=== PATIENT | female | born 1995 | race Caucasian/White ===

== ENCOUNTER 2019-12-16 13:54 | Emergency (ER) | payer SELFPAY ==
--- NOTE | 2019-12-16 14:36 | ECG_ITS ---
Measurements Intervals Duck Rate: 84 P: 71 NC: 138 QRS: 84 QRSD: 90 T: 50 QT: 357 QTc: 422 Interpretive Statements SINUS RHYTHM WITH SINUS ARRHYTHMIA DELAYED PRECORDIAL R/S TRANSITION BORDERLINE ECG Electronically Signed On 12-16-2019 14:48:08 [facility] by Alcides Solis D.O.
[2019-12-16 14:37] VITALS: BP 130/75; PULSE 87; RESP 19; TEMP 37.1; O2SAT 100
[2019-12-16 14:56] LABS: Basophils Absolute Auto 0.1 K/mm3 (0.0-0.1); Basophils Percent Auto 0.5 % (0.2-1.2); Eosinophils Absolute Auto 0.1 K/mm3 (0-0.3); Eosinophils Percent Auto 0.5 % (0-4.4); Hematocrit 40.2 % (37.0-47.0); Hemoglobin 13.5 g/dL (12.0-15.0); Immature Granulocyte Absolute 0.04 K/mm3 (0.00-0.031); Immature Granulocyte Percent A 0.4 % (0-0.5); Lymphocytes Absolute Auto 1.97 K/mm3 (0.9-3.2); Lymphocytes Percent Auto 19.9 % (18.3-44.2); Mean Corpuscular HGB Conc 33.6 g/dl (32-36); Mean Corpuscular Hemoglobin 29.7 pg (26-34); Mean Corpuscular Volume 88.5 fl (80-100); Mean Platelet Volume 10.8 fl (7.4-10.4); Monocytes Percent Auto 10.5 % (2.6-8.5); Neutrophils Absolute Auto 6.8 K/mm3 (1.3-6.7); Neutrophils Percent Auto 68.2 % (45.5-73.1); Platelet Count Result 300 k/mm3 (150-375); Red Blood Count 4.54 M/mm3 (4.2-5.4); Red Cell Distribution Width 12.5 % (11.5-14.5); White Blood Count 9.9 K/mm3 (4.5-10.0)
[2019-12-16 15:07] LABS: Alanine Aminotransferase 11 U/L (4-35); Albumin Level 4.6 g/dL (3.5-5.1); Alkaline Phosphatase 48 U/L (38-126); Aspartate Amino Transferase 20 U/L (14-36); Bilirubin,Total 0.4 mg/dL (0.2-1.3); Blood Urea Nitrogen 9 mg/dL (7-17); Calcium 9.6 mg/dL (8.4-10.2); Carbon Dioxide 25 mmol/L (22-30); Chloride 104 mmol/L (98-107); Estimated Glomerular Filt Rate > 60; Glucose 91 mg/dL (65-105); Sodium 139 mmol/L (137-145)
[2019-12-16 16:21] VITALS: BP 100/68; PULSE 77; RESP 16; O2SAT 98
[2019-12-16 16:36] LABS: Add Urine Microscopic? YES; Appearance Urine Clear (Clear); Bacteria Urine Trace /hpf; Bilirubin Urine Negative (Negative); Blood Urine Negative (Negative); Color Urine Straw (Yellow); Glucose Urine UA Negative (Negative); Ketones Urine Negative (Negative); Leukocyte Esterase Ur 1+ LEU/UL (Negative); Mucus Urine Rare /lpf; Nitrate Urine Negative (Negative); Protein Urine Negative (Negative); RBC Urine 0-2 /hpf (0-2); Specific Grav Ur 1.012 (1.001-1.035); Squamous Epithelial Cell Urine Occasional /hpf (Few); Urobilinogen Urine Negative mg/dL (<2.0); WBC Urine 21-30 /hpf
--- NOTE | 2019-12-16 17:03 | ED.DIZZY ---
HPI - Dizziness General Chief Complaint: Dizziness <Deb Hurtado PA-C - Last Filed: 12/16/19 17:48> Stated Complaint: Dizzy,lightheaded <CALEB Theodore Last Filed: 12/16/19 17:48> Time Seen by Provider: 12/16/19 15:59 <Deb Hurtado PA-C - Last Filed: 12/16/19 17:48> Source: patient <CALEB Theodore Last Filed: 12/16/19 17:48> Mode of arrival: ambulatory <CALEB Theodroe Last Filed: 12/16/19 17:48> Limitations: no limitations <CALEB Theodore Last Filed: 12/16/19 17:48> History of Present Illness HPI Narrative: Patient presents with chief complaint of having a 30-minute episode after standing where she was dizzy, felt tingling in bilateral fingertips and felt pain. Patient states that she thinks it may be anxiety related to that she and her family have a history of anxiety. sHe denies nausea, vomiting, headache, change in vision or hearing, abdominal pain, head trauma, syncope, chest pain, shortness of breath. Patient states she is set for awhile, then came to the ER and her symptoms resolved by the time that she got here. Patient states that her symptoms have not returned. Patient states that she has had some dysuria since ending her menstrual cycle 1 week ago. She denies fever, chills, flank pain, hematuria. <CALEB Theodore Last Filed: 12/16/19 17:48> Related Data Allergies/Adverse Reactions: Allergies Allergy/AdvReac Type Severity Reaction Status Date / Time No Known Allergies Allergy Verified 12/16/19 17:35 <Deb Hurtado PA-C - Last Filed: 12/16/19 17:48> Review of Systems Review of Systems: Narrative: CONSTITUTIONAL: Denies fever, chills, or sweats. EYES: Denies visual changes, redness, or discharge. ENT: Denies rhinorrhea, congestion, sore throat, or otalgia. CARDIOVASCULAR: Denies chest pain, palpitations, or edema. RESPIRATORY: Denies cough or dyspnea. GASTROINTESTINAL: Denies abdominal pain, nausea, vomiting, or diarrhea. GENITOURINARY: Reports dysuria denies hematuria. SKIN:Denies rash or itching. MUSCULOSKELETAL: Denies back pain, joint pain, or myalgia. NEUROLOGIC: Reports dizziness denies headache, numbness, or weakness. PSYCHIATRIC: Denies anxiety or depression. <Deb Hurtado PA-C - Last Filed: 12/16/19 17:48> [facility] Social History Social History: Social History Gender identity (if verbalized by the patient): Female <Deb Hurtado PA-C - Last Filed: 12/16/19 17:48> Exam Narrative: Exam Narrative: GENERAL: Well-appearing, well-nourished, and in no acute distress. HEAD: Normocephalic, atraumatic. EYES: PERRLA and EOMI. ENT: Nares clear, no rhinorrhea or epistaxis. Mucous membranes moist. Oropharynx without tonsillar hypertrophy exudate or other lesions. Bilateral TMs pearly hinkle nonbulging NECK: Supple. No adenopathy or masses. No carotid bruits or JVD CHEST: Clear to auscultation. No respiratory distress. No wheezes rales or rhonchi HEART: Regular rate and rhythm. No murmur heard. Normal peripheral pulses. ABDOMEN: Soft, nontender, nondistended, normal active bowel sounds. EXTREMITIES: Normal range of motion. No edema. SKIN: Warm, dry, no rash. NEURO: No focal deficits. Alert and oriented x3. PSYCH: Normal mood and affect. <Deb Hurtado PA-C - Last Filed: 12/16/19 17:48> Course Vital Signs Vital signs: Vital Signs Temperature 37.1 C 12/16/19 14:37 Pulse Rate 87 12/16/19 14:37 Respiratory Rate 19 12/16/19 14:37 Blood Pressure 130/75 12/16/19 14:37 Pulse Oximetry 100 12/16/19 14:37 Temperature 37.1 C 12/16/19 14:37 Pulse Rate 82 12/16/19 17:56 Respiratory Rate 16 12/16/19 17:56 Blood Pressure 100/72 12/16/19 17:56 Pulse Oximetry 98 02/13/20 17:56 <Deb Hurtado PA-C - Last Filed: 12/16/19 17:48> Vital Signs Temperature 37.1 C 12/16/19 14:37 Pulse Rate 87 12/16/19 14:37 Respiratory Rate 19 12/16/19 14:37 Blood Pr
[2019-12-16 17:56] VITALS: BP 100/72; PULSE 82; RESP 16; O2SAT 98
== END 2019-12-16 17:58 | disposition home or self-care (01) ==
PROVIDERS: Emergency Medicine; Emergency Provider Emergency Medicine
DX: R42 Dizziness and giddiness (principal); N30.00 Acute cystitis without hematuria; R94.31 Abnormal electrocardiogram [ECG] [EKG]
CPT/HCPCS: 36415; 80053; 81001; 81025; 85025; 87086; 87088; 93005; 99283

== ENCOUNTER 2021-12-11 09:55 | Outpatient (CLI) | payer BC, SELFPAY ==
--- NOTE | ~2021-12-11 | US_ITS ---
EXAMINATION: US OB <= 14 weeks fetus DATE: 12/11/2021 10:18 INDICATION: Uncertain dates. TECHNIQUE: Real-time transabdominal pelvic ultrasound was performed. COMPARISON: None. FINDINGS: The uterus measures 10.9 x 8.0 x 5.9 cm. There is an intrauterine gestational sac. A yolk sac is iden tified. The crown rump length measures 2.8 cm, which correlates with an estimated gestational age of 9 weeks and 4 day(s) (+/-) 6 day(s). heart motion is identified measuring 165 beats per minute (bpm) by M-mode Doppler. The ovaries are not visualized. There is no free fluid in the pelvis. IMPRESSION: 1. Single living intrauterine gestation with estimated date of delivery of 07/12/2022. Reviewed, dictated and finalized at location A. [facility] IMPRESSION: 1. Single living intrauterine gestation with estimated date of delivery of 07/12.
== END 2021-12-11 09:56 | disposition home or self-care (01) ==
PROVIDERS: Visit Provider Obstetrics & Gynecology
DX: Z36.89 Encounter for other specified antenatal screening (principal)
CPT/HCPCS: 76801

== ENCOUNTER 2022-01-02 13:48 | Outpatient (CLI) | payer BC, SELFPAY ==
[2022-01-02 14:52] LABS: Basophils Absolute Auto 0.1 K/mm3 (0.0-0.1); Basophils Percent Auto 0.6 % (0.2-1.2); Eosinophils Absolute Auto 0.1 K/mm3 (0-0.3); Eosinophils Percent Auto 1.1 % (0-4.4); Hematocrit 37.1 % (37.0-47.0); Hemoglobin 12.8 g/dL (12.0-15.0); Immature Granulocyte Absolute 0.03 K/mm3 (0.00-0.031); Immature Granulocyte Percent A 0.3 % (0-0.5); Lymphocytes Percent Auto 23.9 % (18.3-44.2); Mean Corpuscular HGB Conc 34.5 g/dl (32-36); Mean Corpuscular Hemoglobin 30.8 pg (26-34); Mean Corpuscular Volume 89.4 fl (80-100); Monocytes Absolute Auto 1.1 K/mm3 (0.1-0.6); Monocytes Percent Auto 10.2 % (2.6-8.5); Neutrophils Absolute Auto 6.7 K/mm3 (1.3-6.7); Neutrophils Percent Auto 63.9 % (45.5-73.1); Platelet Count Result 312 k/mm3 (150-375); Red Blood Count 4.15 M/mm3 (4.2-5.4); Red Cell Distribution Width 12.7 % (11.5-14.5); White Blood Count 10.5 K/mm3 (4.5-10.0)
[2022-01-02 15:43] LABS: HIV 1/2 Ab P24 Ag Result Negative (Negative)
[2022-01-02 15:44] LABS: Add Urine Microscopic? NO; Appearance Urine Clear (Clear); Bilirubin Urine Negative (Negative); Blood Urine Negative (Negative); Color Urine Colorless (Yellow); Glucose Urine UA Negative (Negative); Ketones Urine Negative (Negative); Leukocyte Esterase Ur Negative LEU/UL (NEGATIVE); Nitrate Urine Negative (Negative); Protein Urine Negative (Negative); Specific Grav Ur 1.005 (1.001-1.035); Urobilinogen Urine Negative mg/dL (<2.0)
[2022-01-02 15:57] LABS: Hepatitis B Surface Antigen Negative (Negative); Rubella IgG Antibody 17.2 IU/ML
[2022-01-02 16:10] LABS: Hepatitis C Virus Antibody Negative (Negative)
[2022-01-03 11:41] LABS: Rapid Plasma Reagin Non-Reactive (NonReactive)
[2022-01-04 21:01] LABS: Varicella IgG Antibody <135.00 Index (>=165.00)
[2022-01-08 23:26] LABS: Hematocrit 38.2 % (35.0-45.0); MCH 30.3 pg (27.0-33.0); RDW 12.8 % (11.0-15.0); Red Blood Cell Count 4.29 Mill/uL (3.80-5.10)
== END 2022-01-02 13:49 | disposition home or self-care (01) ==
LOC: ANHLAB 13:50
PROVIDERS: Visit Provider Obstetrics & Gynecology
DX: Z34.90 Encounter for supervision of normal pregnancy, unspecified, unspecified trimester (principal)
CPT/HCPCS: 36415; 81003; 83021; 84443; 85025; 86592; 86703; 86762; 86787; 86803; 86850; 86900; 86901; 87077; 87086; 87088; 87186; 87340; G0432